=== PATIENT | female | born 1945 | race Caucasian/White ===

== ENCOUNTER 2016-06-25 13:30 | Outpatient (RCR) | payer MEDICARE, OTHER ==
[~2016-06-25 13:30] MED LIST: AMIT10TA6 PO; AMIT25TA9 PO; ATEN50TA PO; CITA10TA PO; DOCU100T7 PO; ENAL10TA PO; NAPR220C11 PO; POTA99TA7 PO; PRAV40TA PO; TRAM50TA2 PO
== END 2016-09-20 | disposition home or self-care (01) ==
LOC: LAB 13:30
PROVIDERS: ATTEND Obstetrics & Gynecology
DX: R19.7 Diarrhea, unspecified (principal)
CPT/HCPCS: 87045; 87046; 87324

== ENCOUNTER → 2016-08-08 | Outpatient (CLI) | payer MEDICARE, OTHER ==
[~2016-08-08] MED LIST changes: +CATHETER FLUSH 10 ML SYR IV PRN; +IOHEXOL 350 MG/ML 100 ML (OMNIPAQUE 350) VIAL IV ONE; +NS 100 ML (IVPB) BAG IV ONE
[2016-08-08 07:41] LABS: MEAN PLATELET VOLUME 10.2 FL (7.4-10.4); RED BLOOD COUNT 4.52 10^6/uL (4.35-5.85); RED CELL DISTRIBUTION WIDTH 14.7 % (10.0-14.5); WHITE BLOOD COUNT 8.9 10^3/uL (4.3-11.0)
[2016-08-08 08:04] LABS: ALANINE AMINOTRANSFERASE 23 U/L (0-55); ALBUMIN 3.9 G/DL (3.2-4.5); ANION GAP 11 MMOL/L (5-14); ASPARTATE AMINO TRANSFERASE 35 U/L (5-34); BILIRUBIN,TOTAL 1.2 MG/DL (0.1-1.0); BLOOD UREA NITROGEN 16 MG/DL (7-18); BUN/CREATININE RATIO 18; CALCIUM 9.4 MG/DL (8.5-10.1); CARBON DIOXIDE 23 MMOL/L (21-32); CHLORIDE 109 MMOL/L (98-107); CREATININE SERUM 0.88 MG/DL (0.60-1.30); GFR ESTIMATED > 60; GLUCOSE 94 MG/DL (70-105); POTASSIUM 3.7 MMOL/L (3.6-5.0); SODIUM 143 MMOL/L (135-145); TOTAL PROTEIN 6.4 G/DL (6.4-8.2)
--- NOTE | 2016-08-08 09:24 | Diagnostic Imaging Report ---
PROCEDURE: CT abdomen and pelvis with contrast. TECHNIQUE: Multiple contiguous axial images were obtained through the abdomen and pelvis after administration of intravenous contrast. INDICATION: Generalized abdominal pain. Constipation. COMPARISON: 01/22/2015. FINDINGS: Included views of the lung bases are clear. CT ABDOMEN: There is abnormal bowel wall hyperenhancement and thickening within the central lower abdomen involving the probable distal jejunum and proximal ileum. There is also abnormal stranding of the mesenteric fat, appearance to the mesenteric vessels. Small bowel loops, however, are nondistended. There is no pneumatosis, pneumoperitoneum nor portal venous gas. There is no free fluid or loculated air-fluid collection. Note is made of clinical history of previous appendectomy. However, there does appear to be a normal appendix within the right lower abdominal quadrant (image 66, series 2). The kidneys, adrenal glands, spleen, pancreas, and liver have a normal appearance. No abnormal mesenteric or retroperitoneal adenopathy is seen. There is mild scattered calcified aortic and arterial atherosclerosis. Bony structures show age-related degenerative changes, but no acute abnormalities are seen. CT PELVIS: Pelvis is partially obscured secondary to metallic streak artifact from previous right hip replacement. Note is made of moderate degenerative changes of the left hip. No acute bony abnormality is seen. Urinary bladder is minimally opacified, but is otherwise grossly unremarkable. There is no loculated fluid collection, free fluid or free air within the pelvis. No abnormal adenopathy is seen. IMPRESSION: 1. Abnormal bowel wall thickening and hyperenhancement with nonspecific edematous change to the adjacent mesentery. Findings are nonspecific, but raise suspicion for underlying infectious or inflammatory enteritis. 2. No evidence of small bowel obstruction. No pneumatosis, pneumoperitoneum, nor portal venous gas. Dictated by: Dictated on workstation # [id number]
== END ==
LOC: RAD 07:22
PROVIDERS: ATTEND Nurse Practitioner Family
DX: K63.89 Other specified diseases of intestine (principal); R10.84 Generalized abdominal pain
CPT/HCPCS: 36415; 74177; 80053; 85027

== ENCOUNTER → 2016-12-21 | Outpatient (CLI) | payer MEDICARE, OTHER ==
[~2016-12-21] MED LIST changes: -CATHETER FLUSH 10 ML SYR IV PRN; -IOHEXOL 350 MG/ML 100 ML (OMNIPAQUE 350) VIAL IV ONE; -NS 100 ML (IVPB) BAG IV ONE
--- NOTE | 2016-12-21 17:12 | Diagnostic Imaging Report ---
Bilateral screening mammogram The current study was also evaluated with a Computer Aided Detection (CAD) system. Indication: Screening. No current complaints stated on the questionnaire. COMPARISON: 3--15 Findings: The breasts are composed of scattered fibroglandular densities. Punctate calcification in the right breast is seen. Allowing for technique and positional differences, no suspicious change is seen. IMPRESSION: No significant change. ACR BI-RADS Category 2: Benign findings. Result letter will be mailed to the patient. Note: At least 10% of breast cancer is not imaged by mammography. Dictated by: Dictated on workstation # [id number]
== END ==
LOC: RAD 09:30
PROVIDERS: ATTEND Obstetrics & Gynecology
DX: Z12.31 Encounter for screening mammogram for malignant neoplasm of breast (principal)
CPT/HCPCS: 77067

== ENCOUNTER → 2017-02-12 | Outpatient (CLI) | payer MEDICARE, OTHER | LOC: RAD 11:50 | PROVIDERS: ATTEND Nurse Practitioner Family | DX: R01.1 Cardiac murmur, unspecified (principal) | CPT/HCPCS: 93306 ==

== ENCOUNTER → 2017-07-26 | Outpatient (CLI) | payer MEDICARE, OTHER ==
--- NOTE | 2017-07-26 12:09 | Diagnostic Imaging Report ---
INDICATION: Osteoporosis. COMPARISON: No prior studies available for comparison. FINDINGS: Bone mineral analysis of the lumbar spine and left hip was performed. The bone mineral density of the lumbar spine L2-L4 is 0.918 with a T score of -2.3. The bone mineral density of the left femoral neck is 0.941 with a T score of -0.7. IMPRESSION: Findings consistent with osteopenia of the lumbar spine with normal bone mineral density of the left femoral neck. Dictated by: Dictated on workstation # [id number]
== END ==
LOC: RAD 10:47
PROVIDERS: ATTEND Nurse Practitioner Family
DX: M81.0 Age-related osteoporosis without current pathological fracture (principal)
CPT/HCPCS: 77080

== ENCOUNTER → 2017-09-10 | Outpatient (CLI) | payer MEDICARE, OTHER ==
[~2017-09-10] VITALS: Ht 160 cm; Wt 68.0 kg
[~2017-09-10] MED LIST changes: +DENOSUMAB 60 MG/1 ML (PROLIA) SQ NR
[2017-09-10 13:35] VITALS: BP 167/97
== END ==
LOC: SDC 13:29
PROVIDERS: ATTEND Family Medicine
DX: M81.0 Age-related osteoporosis without current pathological fracture (principal)

== ENCOUNTER → 2018-02-15 | Outpatient (CLI) | payer MEDICARE, OTHER ==
[~2018-02-15] MED LIST changes: -DENOSUMAB 60 MG/1 ML (PROLIA) SQ NR
--- NOTE | 2018-02-15 11:53 | Diagnostic Imaging Report ---
Indication: Routine screening. Comparison is made with prior exam from 12/21/2016 and 09/07/2014. 2-D and 3-D bilateral screening mammography was performed with CAD. Scattered fibroglandular densities are identified bilaterally. No mass is identified. No malignant-appearing microcalcifications are seen. The axillae are unremarkable. Impression: BI-RADS category 1 No mammographic features suspicious for malignancy are identified. ACR BI-RADS Category 1: Negative. Result letter will be mailed to the patient. Note: At least 10% of breast cancer is not imaged by mammography. Dictated by: Dictated on workstation # [id number]
== END ==
LOC: RAD 07:47
PROVIDERS: ATTEND Nurse Practitioner Family
DX: Z12.31 Encounter for screening mammogram for malignant neoplasm of breast (principal)
CPT/HCPCS: 77067

== ENCOUNTER 2018-06-21 13:30 | Outpatient (CLI) | payer MEDICARE, OTHER ==
[~2018-06-21] VITALS: Ht 160 cm; Wt 72.6 kg
[2018-06-21] MEDS ORDERED: HYDR-700 PO (14:18)
[2018-06-21] MEDS ORDERED: CITA20TA9 PO (14:18)
[2018-06-21] MEDS ORDERED: METO-395 PO (14:18)
[2018-06-21] MEDS ORDERED: HYDR-3812 PO (14:18)
== END 2018-06-21 14:07 | disposition home or self-care (01) ==
LOC: PREOP 13:30
PROVIDERS: ATTEND Surgery
DX: Z01.818 Encounter for other preprocedural examination (principal)

== ENCOUNTER 2018-06-24 12:10 | Day surgery (SDC) | payer MEDICARE, OTHER ==
[~2018-06-24] VITALS: Ht 160 cm; Wt 72.6 kg
[~2018-06-24 12:10] MED LIST changes: +CITA20TA9 PO; +HYDR-3812 PO; +HYDR-700 PO; +METO-395 PO
[2018-06-24] MEDS ORDERED: NS IV 500 ML 500 ML IV PRN (12:49)
[2018-06-24] MEDS ORDERED: fentaNYL INJECTION 100 MCG/2 ML AMP IVP ONE (13:00)
[2018-06-24] MEDS ORDERED: MIDAZOLAM 2 MG/2 ML (VERSED) VIAL IVP ONE (13:00)
[2018-06-24] MEDS ORDERED: NS IV 500 ML 500 ML ONE (13:01)
[2018-06-24 13:17] VITALS: BP 150/84
--- NOTE | 2018-06-24 13:23 | History & Physicial ---
History of Present Illness History of Present Illness Reason for visit/HPI to undergo colonoscopy for screening purposes and on the basis of a personal history of polyps and anal cancer. Date of Admission 06/24/18 Date Seen by a Provider: Jun 24, 2018 Time Seen by a Provider: 13:22 I consulted on this patient on 06/24/18 13:21 Attending Physician Wil Abrams MD Admitting Physician Carmen Maya MD Consult Allergies and Home Medications Allergies Coded Allergies: No Known Drug Allergies (Unverified , 02/09/12) Home Medications Citalopram Hydrobromide 20 Mg Tablet, 20 MG PO HS, (Reported) Hydrocodone/Acetaminophen 1 Each Tablet, 1 EACH PO Q4-6HR PRN for PAIN-MODERATE, (Reported) Hydroxyzine HCl 25 Mg Tablet, 25 MG PO HS PRN for ITCHING, (Reported) Metoprolol Succinate 100 Mg Tab.er.24h, 100 MG PO DAILY, (Reported) Patient Home Medication List Home Medication List Reviewed: Yes Past Piokwqu-Qiiqms-Zbijbs Hx Patient Social History Marrital Status: Employed/Student: retired Alcohol Use: Denies Use Recreational Drug Use: No Smoking Status: Never a Smoker Recent Foreign Travel: No Contact w/other who traveled: No Recent Hopitalizations: No Recent Infectious Disease Expo: No Immunizations Up To Date Tetanus Booster (TDap): Unknown Pediatric: No Date of Pneumonia Vaccine: Apr 25, 2017 Date of Influenza Vaccine: Apr 25, 2018 Seasonal Allergies Seasonal Allergies: No Surgeries Yes Adenoidectomy, Appendectomy, Hysterectomy, Orthopedic, Tonsillectomy Respiratory No Cardiovascular Yes Hypertension Neurological Yes Headaches /Migraines Reproductive System Hx Reproductive Disorders: No Gastrointestinal Yes Chronic Diarrhea Cancer Yes Colon Did You Recieve Any Treatments: Yes Type of Treatment: Chemotherapy, Radiation Review of Systems Constitutional: no symptoms reported Respiratory: no symptoms reported Cardiovascular: no symptoms reported Gastrointestinal: no symptoms reported Genitourinary: no symptoms reported Musculoskeletal: no symptoms reported Skin: no symptoms reported Psychiatric/Neurological: No Symptoms Reported Physical Exam Vital Signs Vital Signs - First Documented 06/24/18 13:17 Temp 98.2 Pulse 66 Resp 18 B/P (MAP) 150/84 (106) Pulse Ox 96 O2 Delivery Room Air Capillary Refill : Height, Weight, BMI Height: 5'3.00" Weight: 160lbs. 0.0oz. 72.476300uy; 28.3 BMI Method: General Appearance: No Apparent Distress Neck: Normal Inspection Respiratory: Lungs Clear Cardiovascular: Regular Rate, Rhythm Gastrointestinal: Non Tender, Soft Rectal: Deferred Neurologic/Psychiatric: Alert, Oriented x3 Skin: Warm/Dry Assessment/Plan Assessment and Plan lady with a personal history of colon cancer and polyps. For colonoscopy Admission Diagnosis Admission Status: Other (Outpt Proc) WIL ABRAMS MD Jun 24, 2018 13:23
--- NOTE | 2018-06-24 13:24 | Conscious Sedation/ASA ---
Conscious Sedation Pre-Proced Time 13:24 ASA Score 2 For ASA 3 and 4: Consider anesthesia and medical clearance. Also, for patients with a history of failed moderate sedation consider anesthesia. Airway Lungs Heart ASA score ASA 1: a normal healthy patient ASA 2: a patient with a mild systemic disease (mid diabetes, controlled hypertension, obesity ASA 3: a patient with a severe systemic disease that limits activity (angina , COPD, prior Myocardial infarction) ASA 4: a patient with an incapacitating disease that is a constant threat to life (CHF, renal failure) ASA 5: a moribund patient not expected to survive 24 hrs. (ruptured aneurysm) ASA 6: a declared brain patient whose organs are being harvested. For emergent operations, add the letter E after the classification Mallampati Classification Grade 1 Sedation Plan Discussed options with patient/fam The patient is an appropriate candidate to undergo the planned procedure, sedation, and anesthesia. The patient immediately re-assessed prior to indication. WIL CRAIG MD Jun 24, 2018 13:24
[2018-06-24] MEDS ORDERED: MIDAZOLAM 2 MG/2 ML (VERSED) VIAL ONE ×3 (14:39)
[2018-06-24] MEDS ORDERED: fentaNYL INJECTION 100 MCG/2 ML AMP ONE (14:40)
--- NOTE | 2018-06-24 15:19 | Endo Procedure Record ---
Endo Procedure Report Date of Procedure Last Colonoscopy: Yes Jun 24, 2018 Surgeon (s) WIL CRAIG MD Post Procedure/Op Diagnosis perianal excoriation Procedure Performed colonoscopy to cecum Description of Procedure Anesthesia Type: Conscious Sedation Specimen(s) collected/removed None Description of the Procedure Indication for the procedure: This lady, with a personal history of anal carcinoma managed by chemoradiation and polyps, came in for surveillance colonoscopy. Informed consent was obtained after reviewing the procedure in detail. Description of the procedure: She was placed in left lateral decubitus position and her vital signs were monitored. Conscious sedation was achieved using Versed and fentanyl. Examination of the perianal area revealed changes of previous radiation and severe excoriation. Digital examination was suggestive of anal stenosis. The flexible colonoscope was then introduced into the rectum and advanced with some difficulty to the cecum. It was then withdrawn slowly and the mucosa examined in a systematic fashion. There was no abnormality of significance. She tolerated the procedure well and was taken back to the nursing area in a stable condition. Impression: Previous anal carcinoma. Normal colonoscopy. Perianal excoriation Copy Copies To 1: DEMETRIS CAMARGO MD, XAVIER M MD Jun 24, 2018 15:19
--- NOTE | 2018-06-24 15:20 | Discharge Inst-Simple/Standard ---
Discharge Inst-Standard Discharge Medications New, Converted or Re-Newed RX: Other Patient Instructions/Follow Up Plan of Care/Instructions/FU: to use [id number] antidiarrheals as needed Activity as Tolerated: Yes Discharge Diet: No Restrictions WIL CRAIG MD Jun 24, 2018 15:20
[2018-06-24 15:30] VITALS: BP 129/68
[2018-06-24 16:00] VITALS: BP 162/80
[2018-06-24 16:18] VITALS: BP 162/80
== END 2018-06-24 16:19 | disposition home or self-care (01) ==
LOC: ENDO 12:10
PROVIDERS: ATTEND Surgery
DX: Z12.11 Encounter for screening for malignant neoplasm of colon (principal); K62.89 Other specified diseases of anus and rectum; Z85.040 Personal history of malignant carcinoid tumor of rectum; Z86.010 Personal history of colon polyps; I10 Essential (primary) hypertension; K52.9 Noninfective gastroenteritis and colitis, unspecified; Z92.21 Personal history of antineoplastic chemotherapy; Z92.3 Personal history of irradiation; Z79.899 Other long term (current) drug therapy

== ENCOUNTER → 2019-01-21 | Outpatient (CLI) | payer MEDICARE, OTHER | LOC: CARD 11:27 | PROVIDERS: ATTEND Family Medicine | DX: I35.1 Nonrheumatic aortic (valve) insufficiency (principal) | CPT/HCPCS: 93306 ==

== ENCOUNTER → 2019-03-19 | Outpatient (CLI) | payer MEDICARE, OTHER ==
--- NOTE | 2019-03-19 13:19 | Diagnostic Imaging Report ---
INDICATION: Right breast density. Patient presents for additional views. COMPARISON: Correlation is made with the screening study from 02/28/2019. TECHNIQUE: Unilateral right 2D and 3D diagnostic mammography was performed including spot compression MLO and conventional 90 degree lateral views. FINDINGS: Scattered densities in the right breast are identified. Additional views fail to demonstrate a discrete mass. The area of density noted on the screening study most likely represented superimposed tissue. No suspicious calcifications are seen. IMPRESSION: Additional views fail to demonstrate a discrete mass. The patient may return to routine annual screening mammography. ACR BI-RADS Category 1: Negative. Result letter will be mailed to the patient. Note: At least 10% of breast cancer is not imaged by mammography. Dictated by: Dictated on workstation # [id number]
== END ==
LOC: RAD 12:22
PROVIDERS: ATTEND Obstetrics & Gynecology
DX: R92.8 Other abnormal and inconclusive findings on diagnostic imaging of breast (principal)

== ENCOUNTER → 2019-04-04 | Outpatient (CLI) | payer MEDICARE, OTHER ==
[~2019-04-04] MED LIST changes: +CATHETER FLUSH 10 ML SYR IV PRN; +HOLD METFORMIN - RECEIVED CONTRAST 20 ML VIAL IV SCH; +IOHEXOL 350 MG/ML 100 ML (OMNIPAQUE 350) VIAL IV ONE; +NS 100 ML (IVPB) BAG IV ONE
[2019-04-04 13:14] LABS: ALBUMIN 4.2 GM/DL (3.2-4.5); CREATININE SERUM 1.09 MG/DL (0.60-1.30); POTASSIUM 4.1 MMOL/L (3.6-5.0); TOTAL PROTEIN 7.2 GM/DL (6.4-8.2)
--- NOTE | 2019-04-04 14:47 | Diagnostic Imaging Report ---
PROCEDURE: CT abdomen and pelvis with contrast. TECHNIQUE: Multiple contiguous axial images were obtained through the abdomen and pelvis after administration of intravenous contrast. Auto Exposure Controls were utilized during the CT exam to meet ALARA standards for radiation dose reduction. INDICATION: Left inguinal pain. Patient has history of anal carcinoma. COMPARISON: Correlation is made with prior CT from 08/08/2016. FINDINGS: The lung bases are clear. The liver demonstrates generalized low density consistent with hepatic steatosis. No discrete liver mass is identified. Gallbladder appears to be surgically absent. No biliary ductal dilatation is seen. The pancreas and spleen are unremarkable. No adrenal mass is identified. The kidneys are unremarkable. The aorta is nonaneurysmal. No central, retroperitoneal, or mesenteric lymphadenopathy is seen. The small and large bowel loops are normal caliber. Previously noted mucosal hyperenhancement involving multiple small bowel loops is not appreciated on today's study with the exception of some questionable wall thickening of the sigmoid colon. This could be owing to incomplete distention. There is no free fluid or loculated fluid collection. No definite pelvic lymphadenopathy is seen. There are some varicosities in the left groin and anterior upper left thigh. Bladder is unremarkable. Bony structures demonstrate postop changes to the right hip. 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 IMPRESSION: 1. Left groin and left upper anterior thigh varicosities. 2. Hepatic steatosis. 3. Questionable wall thickening involving short segment of the sigmoid colon versus incomplete distention. Correlation with colonoscopy would be recommended if not recently performed. No abdominal or pelvic lymphadenopathy is seen. Dictated by: Dictated on workstation # [id number]
== END ==
LOC: RAD 12:27
PROVIDERS: ATTEND Obstetrics & Gynecology
DX: Z01.812 Encounter for preprocedural laboratory examination (principal); I83.812 Varicose veins of left lower extremity with pain; K76.0 Fatty (change of) liver, not elsewhere classified; Z85.048 Personal history of other malignant neoplasm of rectum, rectosigmoid junction, and anus
CPT/HCPCS: 36415; 74177; 80053

== ENCOUNTER → 2019-04-04 | Outpatient (CLI) | payer MEDICARE, OTHER ==
[~2019-04-04] VITALS: Ht 160 cm; Wt 68.2 kg
[~2019-04-04] MED LIST changes: -CATHETER FLUSH 10 ML SYR IV PRN; +DENOSUMAB 60 MG/1 ML (PROLIA) SQ ONE; -HOLD METFORMIN - RECEIVED CONTRAST 20 ML VIAL IV SCH; -IOHEXOL 350 MG/ML 100 ML (OMNIPAQUE 350) VIAL IV ONE; -NS 100 ML (IVPB) BAG IV ONE
[2019-04-04 12:20] VITALS: BP 145/85
== END ==
LOC: SDC 12:01
PROVIDERS: ATTEND Nurse Practitioner Family
DX: M81.0 Age-related osteoporosis without current pathological fracture (principal)
CPT/HCPCS: 96372

== ENCOUNTER → 2019-04-14 | Outpatient (CLI) | payer MEDICARE, OTHER ==
[~2019-04-14] MED LIST changes: -DENOSUMAB 60 MG/1 ML (PROLIA) SQ ONE
[2019-04-14 10:28] LABS: BASOPHILS % (AUTO) 0 % (0-10); EOSINOPHILS # (AUTO) 0.3 10^3/uL (0.0-0.3); EOSINOPHILS % (AUTO) 3 % (0-10); HEMATOCRIT 42 % (35-52); HEMOGLOBIN 13.8 G/DL (11.5-16.0); LYMPHOCYTES # (AUTO) 1.2 X 10^3 (1.0-4.0); LYMPHOCYTES % (AUTO) 12 % (12-44); MEAN CORPUSCULAR HEMOGLOBIN 30 PG (25-34); MEAN CORPUSCULAR HGB CONC 33 G/DL (32-36); MEAN CORPUSCULAR VOLUME 93 FL (80-99); MEAN PLATELET VOLUME 10.6 FL (7.4-10.4); MONOCYTES # (AUTO) 0.7 X 10^3 (0.0-1.0); MONOCYTES % (AUTO) 7 % (0-12); NEUTROPHILS # (AUTO) 7.9 X 10^3 (1.8-7.8); NEUTROPHILS % (AUTO) 79 % (42-75); PLATELET COUNT 240 10^3/uL (130-400); RED CELL DISTRIBUTION WIDTH 15.2 % (10.0-14.5); WHITE BLOOD COUNT 10.1 10^3/uL (4.3-11.0)
== END ==
LOC: LAB 10:08
PROVIDERS: ATTEND Surgery
DX: T66.XXXA Radiation sickness, unspecified, initial encounter (principal); L98.492 Non-pressure chronic ulcer of skin of other sites with fat layer exposed; K62.5 Hemorrhage of anus and rectum
CPT/HCPCS: 36415; 84134; 85025

== ENCOUNTER → 2019-04-14 | Outpatient (CLI) | payer MEDICARE, OTHER | LOC: WOUNDCARE 08:07 | PROVIDERS: ATTEND Surgery | DX: L59.8 Other specified disorders of the skin and subcutaneous tissue related to radiation (principal); T66.XXXA Radiation sickness, unspecified, initial encounter; L98.492 Non-pressure chronic ulcer of skin of other sites with fat layer exposed; K62.9 Disease of anus and rectum, unspecified | CPT/HCPCS: 99213 ==

== ENCOUNTER → 2019-04-23 | Outpatient (CLI) | payer MEDICARE, OTHER | LOC: WOUNDCARE 07:59 | PROVIDERS: ATTEND Surgery | DX: L59.8 Other specified disorders of the skin and subcutaneous tissue related to radiation (principal); T66.XXXA Radiation sickness, unspecified, initial encounter; L98.492 Non-pressure chronic ulcer of skin of other sites with fat layer exposed; K62.5 Hemorrhage of anus and rectum; I96 Gangrene, not elsewhere classified | CPT/HCPCS: 99212 ==

== ENCOUNTER → 2019-04-30 | Outpatient (CLI) | payer MEDICARE, OTHER | LOC: WOUNDCARE 08:02 | PROVIDERS: ATTEND Surgery | DX: I96 Gangrene, not elsewhere classified (principal); T66.XXXA Radiation sickness, unspecified, initial encounter; L98.8 Other specified disorders of the skin and subcutaneous tissue; K62.5 Hemorrhage of anus and rectum; L98.492 Non-pressure chronic ulcer of skin of other sites with fat layer exposed | CPT/HCPCS: 99212 ==

== ENCOUNTER → 2019-05-07 | Outpatient (CLI) | payer MEDICARE, OTHER | LOC: WOUNDCARE 07:59 | PROVIDERS: ATTEND Surgery | DX: L59.8 Other specified disorders of the skin and subcutaneous tissue related to radiation (principal); T66.XXXA Radiation sickness, unspecified, initial encounter; L98.492 Non-pressure chronic ulcer of skin of other sites with fat layer exposed; I96 Gangrene, not elsewhere classified; K62.5 Hemorrhage of anus and rectum | CPT/HCPCS: 99212 ==

== ENCOUNTER → 2019-05-14 | Outpatient (CLI) | payer MEDICARE, OTHER | LOC: WOUNDCARE 07:58 | PROVIDERS: ATTEND Surgery | DX: L59.8 Other specified disorders of the skin and subcutaneous tissue related to radiation (principal); T66.XXXA Radiation sickness, unspecified, initial encounter; L98.492 Non-pressure chronic ulcer of skin of other sites with fat layer exposed; K62.5 Hemorrhage of anus and rectum; I96 Gangrene, not elsewhere classified | CPT/HCPCS: 99212 ==

== ENCOUNTER → 2019-05-21 | Outpatient (CLI) | payer MEDICARE, OTHER | LOC: WOUNDCARE 08:02 | PROVIDERS: ATTEND Surgery | DX: L59.8 Other specified disorders of the skin and subcutaneous tissue related to radiation (principal); T66.XXXA Radiation sickness, unspecified, initial encounter; L98.492 Non-pressure chronic ulcer of skin of other sites with fat layer exposed; K62.5 Hemorrhage of anus and rectum; I10 Essential (primary) hypertension; I96 Gangrene, not elsewhere classified | CPT/HCPCS: 99212 ==

== ENCOUNTER → 2019-05-28 | Outpatient (CLI) | payer MEDICARE, OTHER | LOC: WOUNDCARE 07:59 | PROVIDERS: ATTEND Surgery | DX: L59.8 Other specified disorders of the skin and subcutaneous tissue related to radiation (principal); T66.XXXA Radiation sickness, unspecified, initial encounter; L98.492 Non-pressure chronic ulcer of skin of other sites with fat layer exposed; K62.5 Hemorrhage of anus and rectum; I10 Essential (primary) hypertension; I96 Gangrene, not elsewhere classified | CPT/HCPCS: 99212 ==

== ENCOUNTER → 2019-06-04 | Outpatient (CLI) | payer MEDICARE, OTHER | LOC: WOUNDCARE 11:13 | PROVIDERS: ATTEND Surgery | DX: I96 Gangrene, not elsewhere classified (principal); L98.492 Non-pressure chronic ulcer of skin of other sites with fat layer exposed; T66.XXXA Radiation sickness, unspecified, initial encounter; I10 Essential (primary) hypertension; K62.5 Hemorrhage of anus and rectum | CPT/HCPCS: 99212 ==

== ENCOUNTER → 2019-06-11 | Outpatient (CLI) | payer MEDICARE, OTHER | LOC: WOUNDCARE 08:02 | PROVIDERS: ATTEND Surgery | DX: L98.492 Non-pressure chronic ulcer of skin of other sites with fat layer exposed (principal); I10 Essential (primary) hypertension; I96 Gangrene, not elsewhere classified; L59.8 Other specified disorders of the skin and subcutaneous tissue related to radiation; K62.5 Hemorrhage of anus and rectum | CPT/HCPCS: 99212 ==

== ENCOUNTER → 2019-06-18 | Outpatient (CLI) | payer MEDICARE, OTHER | LOC: WOUNDCARE 08:07 | PROVIDERS: ATTEND Surgery | DX: L59.8 Other specified disorders of the skin and subcutaneous tissue related to radiation (principal); T66.XXXA Radiation sickness, unspecified, initial encounter; L98.492 Non-pressure chronic ulcer of skin of other sites with fat layer exposed; K62.5 Hemorrhage of anus and rectum; I10 Essential (primary) hypertension; L22 Diaper dermatitis; I96 Gangrene, not elsewhere classified | CPT/HCPCS: 99212 ==

== ENCOUNTER 2019-06-23 08:04 | Outpatient (RCR) | payer MEDICARE, OTHER | END 2019-06-23 12:00 | disposition home or self-care (01) | LOC: WOUNDCARE 08:04 | PROVIDERS: ATTEND Surgery | DX: L98.492 Non-pressure chronic ulcer of skin of other sites with fat layer exposed (principal); T66.XXXA Radiation sickness, unspecified, initial encounter; L59.8 Other specified disorders of the skin and subcutaneous tissue related to radiation | CPT/HCPCS: 99183; 99212 ==

== ENCOUNTER → 2019-06-25 | Outpatient (CLI) | payer MEDICARE, OTHER | LOC: WOUNDCARE 11:08 | PROVIDERS: ATTEND Surgery | DX: L59.8 Other specified disorders of the skin and subcutaneous tissue related to radiation (principal); T66.XXXA Radiation sickness, unspecified, initial encounter; L98.492 Non-pressure chronic ulcer of skin of other sites with fat layer exposed; K62.5 Hemorrhage of anus and rectum; I10 Essential (primary) hypertension; L22 Diaper dermatitis; I96 Gangrene, not elsewhere classified | CPT/HCPCS: 99212 ==

== ENCOUNTER → 2019-07-16 | Outpatient (CLI) | payer MEDICARE, OTHER | LOC: WOUNDCARE 08:14 | PROVIDERS: ATTEND Orthopaedic Surgery Hand Surgery | DX: L59.8 Other specified disorders of the skin and subcutaneous tissue related to radiation (principal); T66.XXXA Radiation sickness, unspecified, initial encounter; L98.492 Non-pressure chronic ulcer of skin of other sites with fat layer exposed; K62.5 Hemorrhage of anus and rectum; I10 Essential (primary) hypertension; L22 Diaper dermatitis | CPT/HCPCS: 99212 ==

== ENCOUNTER 2019-07-24 07:59 | Emergency (ER) | payer MEDICARE, OTHER ==
[~2019-07-24] VITALS: Ht 157.4 cm; Wt 65.9 kg
[~2019-07-24 07:59] MED LIST changes: -METO-395 PO; +MTP100TCR PO
--- NOTE | 2019-07-24 08:48 | ED General ---
General Stated Complaint: CATHETER ISSUES Source of Information: Patient Exam Limitations: No Limitations History of Present Illness Date Seen by Provider: Jul 24, 2019 Time Seen by Provider: 08:45 Initial Comments 73-year-old female presents with urinary catheter issues. Patient reports that she had a urinary catheter placed yesterday that she's been having for 2 weeks due to urinary incontinence and irritation. That she rolled over last night and pulled on it. She has a little bit of bleeding in the area but is still draining urine. Patient wanted to have evaluated ensure that she didn't pull it out where it was not going to work Allergies and Home Medications Allergies Coded Allergies: No Known Drug Allergies (Unverified , 02/09/12) Home Medications Citalopram Hydrobromide 20 Mg Tablet, 20 MG PO HS, (Reported) Hydrocodone/Acetaminophen 1 Each Tablet, 1 EACH PO Q4-6HR PRN for PAIN-MODERATE, (Reported) Hydroxyzine HCl 25 Mg Tablet, 25 MG PO HS PRN for ITCHING, (Reported) Metoprolol Succinate 100 Mg Tab.er.24h, 100 MG PO DAILY, (Reported) Patient Home Medication List Home Medication List Reviewed: Yes Review of Systems Review of Systems Constitutional: No chills, No fever Respiratory: no symptoms reported Cardiovascular: no symptoms reported Gastrointestinal: no symptoms reported Genitourinary: see HPI Past Iykywqu-Tpwyvz-Rueyll Hx Past Med/Social Hx: Reviewed Nursing Past Med/Soc Hx Patient Social History Recent Foreign Travel: No Contact w/Someone Who Travel: No Recent Hopitalizations: No Immunizations Up To Date Tetanus Booster (TDap): Unknown PED Vaccines UTD: No Date of Pneumonia Vaccine: Apr 25, 2017 Date of Influenza Vaccine: Apr 25, 2018 Seasonal Allergies Seasonal Allergies: No Past Medical History Surgeries: Yes Adenoidectomy, Appendectomy, Hysterectomy, Orthopedic, Tonsillectomy Respiratory: No Cardiac: Yes Hypertension Neurological: Yes Headaches /Migraines Reproductive Disorders: No Gastrointestinal: Yes Chronic Diarrhea Cancer: Yes Colon Did You Recieve Any Treatments: Yes What Type of Treatment Did You: Chemotherapy, Radiation Physical Exam Vital Signs Capillary Refill : Height, Weight, BMI Height: 5'3.00" Weight: 160lbs. 0.0oz. 72.359305si; 28.3 BMI Method: General Appearance: No Apparent Distress, WD/WN Respiratory: Lungs Clear, Normal Breath Sounds Cardiovascular: Regular Rate, Rhythm, No Edema Gastrointestinal: Normal Bowel Sounds Genital/Rectal: Other (urinary catheter in place with appropriate drainage.) Extremity: Normal Capillary Refill Neurologic/Psychiatric: Alert, Oriented x3 Progress/Results/Core Measures Suspected Sepsis SIRS Temperature: Pulse: Respiratory Rate: Blood Pressure / Mean: Results/Orders Vital Signs/I&O Capillary Refill : Progress Note : Time: 08:49 Progress Note Patient with a little mild traumatic irritation with some very minimal bleeding due to the irritation and trauma. However urinary catheter remain in place and is working appropriately. No further treatment needed at this time. Patient will be discharged home Departure Impression Primary Impression: Complaint about urinary catheter Disposition: 01 HOME, SELF-CARE Condition: Stable Departure-Patient Inst. Referrals: DEMETRIS CAMARGO MD (PCP/Family) Primary Care Physician Patient Instructions: How to Care for Your Hernandez Catheter, Female Add. Discharge Instructions: Emergency department focuses on treating and ruling out life-threatening diseases. Whenever possible, a diagnosis is given. However, most patients are given an impression based on their history, physical exam, and workup during your brief time in the ER. Information about probable diagnosis and other educational material has been provided. Please take the time to read and understand this information. It is very important that you follow up with a physician as discussed during the visit today. Failure to adhere to your follow-up instructions may lead to severe disability, injury, or so please make sure to keep your appointments or obtain one as requested. Please keep in mind the emergency department is not designed to your primary care or "family doctor" and nonurgent issues are best evaluated by an outpatient physician JAYDEN ESCALANTE DO Jul 24, 2019 08:48
[2019-07-24 08:53] VITALS: BP 163/81
== END 2019-07-24 08:53 | disposition home or self-care (01) ==
LOC: EDUNIT# 07:59 → ER 08:00
DX: Z03.89 Encounter for observation for other suspected diseases and conditions ruled out (principal); I10 Essential (primary) hypertension; G43.909 Migraine, unspecified, not intractable, without status migrainosus; Z85.038 Personal history of other malignant neoplasm of large intestine; Z96.0 Presence of urogenital implants; Z90.710 Acquired absence of both cervix and uterus; Z90.89 Acquired absence of other organs; Z90.49 Acquired absence of other specified parts of digestive tract
CPT/HCPCS: 99281

== ENCOUNTER → 2019-07-30 | Outpatient (CLI) | payer MEDICARE, OTHER | LOC: WOUNDCARE 08:42 | PROVIDERS: ATTEND Orthopaedic Surgery Hand Surgery | DX: I96 Gangrene, not elsewhere classified (principal); L98.492 Non-pressure chronic ulcer of skin of other sites with fat layer exposed; T66.XXXA Radiation sickness, unspecified, initial encounter; L92.8 Other granulomatous disorders of the skin and subcutaneous tissue; K62.5 Hemorrhage of anus and rectum; I10 Essential (primary) hypertension; L22 Diaper dermatitis | CPT/HCPCS: 99212 ==

== ENCOUNTER 2019-08-05 15:33 | Emergency (ER) | payer MEDICARE, OTHER ==
[~2019-08-05] VITALS: Ht 160.2 cm; Wt 65.7 kg
[2019-08-05] MEDS ORDERED: LIDOCAINE UROJET 2% GEL 10 ML PKG ONE (15:50)
--- NOTE | 2019-08-05 16:02 | ED GU-Female ---
General Chief Complaint: - Urinary Stated Complaint: CATHETER BLEEDING Nursing Triage Note: TO ED PER W/C HAS CHURCHILL IN PLACE FOR 2 WEEKS SUNDAY ONSET OF PAIN AND BLOOD COMING AROUND CATH. Nursing Sepsis Screen: No Definite Risk Source: patient Exam Limitations: no limitations History of Present Illness Date Seen by Provider: Aug 05, 2019 Time Seen by Provider: 16:00 Initial Comments To ER with vaginal pain. She had a Churchill catheter inserted 2 weeks ago due to urinary difficulties. No fevers or chills. 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 states that she was up all night last night as a pain in the vagina. However she has had pain in this area since 1999 when she had radiation treatment for rectal cancer Timing/Duration: constant, getting worse Severity/Quality: moderate Radiation: none Activities at Onset: none Prior Genitourinary Problems: none Allergies and Home Medications Allergies Coded Allergies: No Known Drug Allergies (Unverified , 02/09/12) Home Medications Citalopram Hydrobromide 20 Mg Tablet, 20 MG PO HS, (Reported) Hydrocodone/Acetaminophen 1 Each Tablet, 1 EACH PO Q4-6HR PRN for PAIN-MODERATE, (Reported) Hydroxyzine HCl 25 Mg Tablet, 25 MG PO HS PRN for ITCHING, (Reported) Metoprolol Succinate 100 Mg Tab.er.24h, 100 MG PO DAILY, (Reported) Patient Home Medication List Home Medication List Reviewed: Yes Review of Systems Review of Systems Constitutional: see HPI EENTM: see HPI Respiratory: no symptoms reported Cardiovascular: no symptoms reported Genitourinary: no symptoms reported Musculoskeletal: see HPI Skin: no symptoms reported Psychiatric/Neurological: No Symptoms Reported Past Kemwdya-Ldbmgo-Vlgjke Hx Patient Social History Alcohol Use: Denies Use Recreational Drug Use: No Smoking Status: Never a Smoker Recent Foreign Travel: No Contact w/Someone Who Travel: No Recent Infectious Disease Expo: No Recent Hopitalizations: No Immunizations Up To Date Tetanus Booster (TDap): Unknown PED Vaccines UTD: No Date of Pneumonia Vaccine: Apr 25, 2017 Date of Influenza Vaccine: Apr 25, 2018 Seasonal Allergies Seasonal Allergies: No Past Medical History Surgeries: Yes Adenoidectomy, Appendectomy, Hysterectomy, Orthopedic, Tonsillectomy Respiratory: No Cardiac: Yes Hypertension Neurological: Yes Headaches /Migraines Reproductive Disorders: No Gastrointestinal: Yes Chronic Diarrhea Musculoskeletal: Yes (ARTHRITIS) Endocrine: No Cancer: Yes Colon Did You Recieve Any Treatments: Yes What Type of Treatment Did You: Chemotherapy, Radiation Psychosocial: No Integumentary: No Blood Disorders: No Physical Exam Vital Signs Vital Signs - First Documented 08/05/19 15:39 Temp 37.1 Pulse 66 Resp 18 B/P (MAP) 157/97 (117) Pulse Ox 100 Capillary Refill : Less Than 3 Seconds Height, Weight, BMI Height: 5'3.00" Weight: 160lbs. 0.0oz. 72.762261jc; 25.00 BMI Method: General Appearance: WD/WN, no apparent distress HEENT: PERRL/EOMI, normal ENT inspection Respiratory: no respiratory distress, no accessory muscle use Gastrointestinal: non tender, soft Pelvic: other (small [address] There is a whitish adherent slough to the vaginal mucous membranes with erythema and some mild ulceration.) Extremities: normal range of motion, non-tender Neurologic/Psychiatric: alert, normal mood/affect, oriented x 3 Skin: normal color, warm/dry Progress/Results/Core Measures Suspected Sepsis Recent Fever Within 48 Hours: No Infection Criteria Present: None New/Unexplained Altered Menta: No Sepsis Screen: No Definite Risk SIRS Temperature: Pulse: 66 Respiratory Rate: 18 Blood Pressure 157 /97 Mean: 117 Results/Orders Medications Given in ED Current Medications Medications Dose Ordered Sig/Jesús Route Start Time Stop Time Status Last Admin Dose Admin Lidocaine HCl 10 ml STK-MED ONCE .ROUTE 08/05/19 15:50 08/05/19 15:55 DC 08/05/19 16:00 10 ML Vital Signs/I&O 08/05/19 15:39 Temp 37.1 Pulse 66 Resp 18 B/P (MAP) 157/97 (117) Pulse Ox 100 Capillary Refill : Less Than 3 Seconds Blood Pressure Mean: 117 Departure Communication (Admissions) [id number] she is symptomatically improved after administration of topical lidocaine. Impression Primary Impression: Vaginal irritation Disposition: 01 HOME, SELF-CARE Condition: Stable Departure-Patient Inst. Decision time for Depature: 16:28 Referrals: DEMETRIS CAMARGO MD (PCP/Family) Primary Care Physician Patient Instructions: NO INSTRUCTIONS GIVEN Add. Discharge Instructions: 1. Nystatin cream as directed. Numbing cream as needed. Return to ER for any concerns. Follow-up with wound care and your regular doctor as scheduled. All discharge instructions reviewed with patient and/or family. Voiced understanding. Scripts Lidocaine HCl (Lidocaine) 35 Gm Oint 1 GM TP BID PRN for PAIN-SEVERE (8-10), #1 TUBE Prov: MARLEN LUNA APRN 08/05/19 Nystatin (Nystatin) 15 Gm Cream..g. 15 GM TP TID, #1 TUBE Prov: MARLEN LUNA APRN 08/05/19 MARLEN LUNA APRN Aug 05, 2019 16:02
[2019-08-05] MEDS ORDERED: LD5O35 TP (16:29)
[2019-08-05] MEDS ORDERED: NYST15CR TP (16:29)
[2019-08-05 16:43] VITALS: BP 157/97
== END 2019-08-05 16:36 | disposition home or self-care (01) ==
LOC: EDUNIT# 15:33 → ER 15:35
DX: N89.8 Other specified noninflammatory disorders of vagina (principal); I10 Essential (primary) hypertension; Z85.038 Personal history of other malignant neoplasm of large intestine; Z96.0 Presence of urogenital implants; Z90.710 Acquired absence of both cervix and uterus; Z90.89 Acquired absence of other organs; Z90.49 Acquired absence of other specified parts of digestive tract
CPT/HCPCS: 99282